=== PATIENT | female | born 2000 | race Two or more races ===

== ENCOUNTER 2023-08-27 23:38 | Emergency (ER) | payer MEDICAID ==
[~2023-08-27] VITALS: Ht 160 cm; Wt 115.8 kg
[2023-08-28 00:33] LABS: Urine Bacteria None Seen /hpf (None Seen)
[2023-08-28 00:44] LABS: Urine Blood Negative /uL (Negative); Urine Clarity Clear (Clear); Urine Color Light-Yellow (Yellow); Urine Mucus FEW (None Seen); Urine Protein, UAD Negative (Negative); Urine Specific Gravity 1.028 (1.001-1.035); Urine Urobilinogen Normal (Negative); Urine WBC 1 /hpf (0 - 5); Urine pH 5.5 (5.0-9.0)
[2023-08-28] MEDS: SODIUM CHLORIDE 0.9% 1,000 ML IV ONE (01:01)
[2023-08-28 01:08] VITALS: BP 122/82; PULSE 86; RESP 18; O2SAT 98
[2023-08-28] MEDS: MORPHINE SULFATE 4 MG/ML SYR/VIAL IV ONE (01:14)
[2023-08-28] MEDS: PANTOPRAZOLE 40 MG/10 ML VIAL INJ IV ONE (01:14)
[2023-08-28] MEDS: ONDANSETRON HCL 4 MG/2 ML VIAL IV ONE (01:15)
[2023-08-28 01:16] LABS: Basophils # (auto) 0.1 10 ^3/uL (0-0.2); Basophils % (auto) 0.5 % (0.0-2.0); Eosinophils # (auto) 0.8 10 ^3/uL (0-0.8); Eosinophils % (auto) 5.4 % (0.0-7.0); Hematocrit 45.1 % (36.0-46.0); Hemoglobin 15.1 g/dL (12.2-16.2); Lymphocytes % (auto) 28.5 % (10.0-50.0); Mean Corpuscular Hemoglobin 29.2 pg (28.0-32.0); Mean Corpuscular Hgb Conc. 33.4 g/dL (32.0-36.0); Mean Corpuscular Volume 87.4 fL (80.0-100.0); Monocytes # (auto) 0.8 10 ^3/uL (0-1.3); Monocytes % (auto) 5.3 % (0.0-12.0); Neutrophils # (auto) 8.5 10 ^3/uL (1.6-8.6); Neutrophils % (auto) 60.3 % (37.0-80.0); Red Blood Cells 5.16 10^6/uL (4.0-5.20); Red Cell Distribution Width 13.5 % (11.8-14.3); White Blood Cell 14.1 10^3/uL (4.4-10.8)
[2023-08-28 01:29] LABS: Alanine Aminotransferase 45 U/L (7-40); Albumin 4.5 g/dL (3.2-4.8); Alkaline Phosphatase 95 U/L (46-116); Anion Gap 9 (5-15); Aspartate Aminotransferase 20 U/L (13-40); BUN/Creatinine Ratio 7.4 (10.0-20.0); Blood Urea Nitrogen 6 mg/dL (9-23); Carbon Dioxide 21 mmol/L (20-30); Chloride 109 mmol/L (98-107); Glucose 96 mg/dL (74-106); Lipase 42 U/L (12-53); Potassium 3.6 mmol/L (3.5-5.1); Sodium 139 mmol/L (136-145)
[2023-08-28 01:30] LABS: Total Protein 7.9 g/dL (5.7-8.2)
[2023-08-28] MEDS ORDERED: ZOFR4T PO (03:14)
[2023-08-28] MEDS ORDERED: CIPR-173 PO (03:14)
[2023-08-28] MEDS ORDERED: METR-344 PO (03:14)
[2023-08-28] MEDS ORDERED: ACET-1304 PO (03:14)
[2023-08-28] MEDS ORDERED: PANT40TA2 PO (03:14)
== END 2023-08-28 03:32 | disposition home or self-care (01) ==
LOC: ER 23:38
DX: K57.90 Diverticulosis of intestine, part unspecified, without perforation or abscess without bleeding (principal); R11.2 Nausea with vomiting, unspecified; R19.7 Diarrhea, unspecified; F32.A Depression, unspecified; F41.9 Anxiety disorder, unspecified; E66.01 Morbid (severe) obesity due to excess calories; Z68.42 Body mass index [BMI] 45.0-49.9, adult; Z88.0 Allergy status to penicillin
CPT/HCPCS: 36415; 74176; 80053; 81001; 81025; 83690; 85025; 96361; 96374; 96375; 99285; C9113; J2270; J2405; J7030

== ENCOUNTER 2024-06-06 21:09 | Emergency (ER) | payer MEDICAID ==
[~2024-06-06] VITALS: Ht 160 cm; Wt 117.0 kg
[~2024-06-06 21:09] MED LIST: ACET-1304 PO; CIPR-173 PO; METR-344 PO; PANT40TA2 PO; ZOFR4T PO
[2024-06-06 23:54] VITALS: BP 120/76; PULSE 98; RESP 17; TEMP 97.4; O2SAT 97
--- NOTE | 2024-06-07 00:24 | DVH ---
INDICATION: FALL/LOW BACK PAIN COMPARISON: None TECHNIQUE: 4 views of the lumbar spine were obtained. FINDINGS: Mild grade 1 anterolisthesis of L5 on S1 measures 0.3 cm. The lumbar vertebral alignment is otherwise normal. No definite evidence of pars defect. The intervertebral disc spaces are well-maintained. No significant facet arthropathy is noted. No acute fracture, vertebral compression deformity or aggressive osseous lesions. The paravertebral soft tissues are grossly unremarkable. IMPRESSION: 1. No acute fracture. 2. Mild grade 1 anterolisthesis of L5 on S1.
--- NOTE | 2024-06-07 01:58 | ED.PDOC ---
Back pain HPI HPI Comments PRESENTS TO ED FOR FALL INJURY. PATIENT REPORTS THAT SHE SLIPPED ON A PLASTIC BAG AND FELL ON A TILED FLOOR. DENIES LOSS OF CONCIOUSNESS. REPORTS THAT SHE DEVELOPED FEVER AND CHILLS WHEN SHE GOT HOME AND TOOK IBUPROFEN 400MG AT HOME. AFEBRILE. VS WNL. REPORTS LOW BACK PAIN. DENIES NUMBNESS, WEAKNESS SADDLE ANESTHESIA, AND LOSS OF BOWEL OR BLADDER CONTROL Chief Complaint: Fall Injury Time Seen by MD: 21:19 Reviewed Notes: Nurses Notes, Medications, Allergies Allergies: Coded Allergies: Penicillins (Verified Allergy, Unknown, 08/28/23) Home Meds Active Scripts Tizanidine Hydrochloride (Tizanidine Hcl) 4 Mg Tab, 4 MG PO HS PRN for 5 Days, #5 TAB Prov:KAROLYN PRIETOP 06/07/24 Nitrofurantoin Monohydrate Mac (Macrobid) 100 Mg Cap, 100 MG PO BID for 5 Days, #10 CAP Prov:KAROLYN PRIETO 06/07/24 Pantoprazole Sodium Sesquihydr (Protonix) 40 Mg Tab, 40 MG PO DAILY, #30 TAB Prov:JUAN HERNANDEZ MD 08/28/23 Ondansetron Odt 4MG Tab (ZOFRAN PO) 4 Mg Tb, 4 MG PO TID PRN, #15 TAB ODT TAB-DISSOLVE IN MOUTH, THEN SWALLOW Prov:JUAN HERNANDEZ MD 08/28/23 Acetaminophen (Tylenol Extra Strength) 500 Mg Tab, 1000 MG PO Q6HP PRN, #30 TAB Prov:JUAN HERNANDEZ MD 08/28/23 Metronidazole (Flagyl) 500 Mg Tab, 1 TAB PO TID for 7 Days, #21 TAB Prov:UJAN HERNANDEZ MD 08/28/23 Ciprofloxacin Hcl (Cipro) 500 Mg Tab, 1 TAB PO BID for 7 Days, #14 TAB Prov:JUAN HERNANDEZ MD 08/28/23 Information Source: Patient Mode of Arrival: Ambulatory Past Medical History PAST MEDICAL HISTORY: Denies Surgical History: Denies all surgeries 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 Family History Family History: Reviewed,noncontributory to illness Social History Smoker: Non-Smoker Alcohol: Denies ETOH Use Drugs: Denies Drug Use Lives In: Home Constitutional: denies: chills, diaphoresis, fatigue, fever, malaise, sweats, weakness, others EENTM: denies: blurred vision, double vision, ear bleeding, ear discharge, ear drainage, ear pain, ear ringing, eye pain, eye redness, hearing loss, mouth pain, mouth swelling, nasal discharge, nose bleeding, nose congestion, nose pain, photophobia, tearing, throat pain, throat swelling, voice changes, others Respiratory: denies: cough, hemoptysis, orthopnea, SOB at rest, shortness of breath, SOB with excertion, stridor, wheezing, others Cardiovascular: denies: chest pain, dizzy spells, diaphoresis, Dyspnea on exertion, edema, irregular heart beat, left arm pain, lightheadedness, palpitations, PND, syncope, others Gastrointestinal: denies: abdomen distended, abdominal pain, blood streaked bowels, constipated, diarrhea, dysphagia, difficulty swallowing, hematemesis, melena, nausea, poor appetite, poor fluid intake, rectal bleeding, rectal pain, vomiting, others Genitourinary: reports: dysuria; denies: abnormal vagina bleeding, burning, dyspareunia, flank pain, frequency, hematuria, incontinence, pain, , vagina discharge, urgency, others Neurological: denies: dizziness, fainting, headache, left sided numbness, left sided weakness, numbness, paresthesia, pre-existing deficit, right sided numb ness, right sided weakness, seizure, speech problems, tingling, tremors, weakness, others Musculoskeletal: reports: back pain; denies: gout, joint pain, joint swelling, muscle pain, muscle stiffness, neck pain, others Integumetry: denies: bruises, change in color, change in hair/nails, dryness, laceration, lesions, lumps, rash, wounds, others Allergic/Immunocompromised: denies: Difficulty Healing, Frequent Infections, Hives, Itching, others Hematologic/Lymphatic: denies: anemia, blood clots, easy bleeding, easy bruising, swollen glands, others Endocrine: denies: excessive hunger, excessive sweating, excessive thirst, excessive urination, flushing, intolerance to cold, intolerance to heat, unexplained weight gain, unexplained weight loss, others Psychiatric: denies: anxiety, bipolar disorder, depression, hopeless, panic disorder, schizophrenia, sleepless, suicidal, others Physical Exam General Appearance: No Apparent Distress, Normal HEENT: Normal ENT Inspection, Pharynx Normal, TMs Normal Neck: Full Range of Motion, Non-Tender, Normal, Normal Inspection Respiratory: Chest Non-Tender, Lungs Clear, No Accessory Muscle Use, No Respiratory Distress, Normal Breath Sounds Cardiovascular: No Edema, No JVD, No Murmur, No Gallop, Normal Peripheral Pu lses, Regular Rate/Rhythm Breast Exam: Deferred Gastrointestinal: No Organomegaly, Non Tender, No Pulsatile Mass, Normal Bowel Sounds, Soft Genitalia: Deferred Pelvic: Deferred Rectal: Deferred Extremities: No calf tenderness, Normal capillary refill, Normal inspection, Normal range of motion, Non-tender, No pedal edema Musculoskeletal : Apperance: Normal Neurologic: Alert, clothes marker II-XII nml as Tested, No Motor Deficits, Normal Affect, Normal Mood, No Sensory Deficits Cerebellar Function: Normal Reflexes: Normal Skin: Dry, Normal Color, Warm Lymphatic: No Adenopathy Was a procedure done? Was a procedure done?: No Back Pain Differential Dx Differential Diagnosis: Fracture, Musculoskeletal Pain, Urinary Obstruction, Urolithiasis X-Ray, Labs, Meds, VS Vital Signs Date Time Temp Pulse Resp B/P (MAP) Pulse Ox O2 Delivery O2 Flow Rate FiO2 06/06/24 23:54 98 17 97 Room Air 06/06/24 23:54 97.4 98 17 120/76 (91) 97 97.4 06/06/24 21:18 97.4 98 17 120/76 (91) 97 97.4 X-Ray, Labs, Meds, VS Comment LUMBAR SPINE SHOWS NO ACUTE FRACTURES, OSSEOUS LESIONS, OR SUBLUXATIONS. PATIENT UNABLE TO OBTAIN A URINE, SHE DOES REPORT DYSURIA LOW BACK PAIN WE WILL TREAT EMPIRICALLY. PATIENT GIVEN TORADOL 60 MG IM SHE REPORTS IMPROVEMENT IN PAIN AND FUNCTION REQUESTING DISCHARGE AT THIS TIME. SCRIPT MUSCLE RELAXER AND MACROBID. ADVISED TO REST INCREASE P.O. FLUIDS WITH ELECTROLYTES. FOLLOW UP WITH YOUR PCP IN 1-2 DAYS. TAKE MEDICATIONS PRESCRIBED SIDE EFFECTS DISCUSSED. ER RETURN PRECAUTIONS GIVEN PATIENT INDICATES UNDERSTANDING AND AGREES WITH DISCHARGE PLAN OF CARE. Time of 1ST Reevaluation: 01:52 Reevaluation 1ST: Improved Patient Education/Counseling: Diagnosis, Treatment, Prognosis, Need For Follow Up Family Education/Counseling: Diagnosis, Treatment, Prognosis, Need For Follow Up Departure 1 Departure Time of Disposition: 01:57 Impression: Primary Impression: Lumbar back sprain Qualified Codes: S33.5XXA - Sprain of ligaments of lumbar spine, initial encounter Additional Impression: UTI (urinary tract infection) Qualified Codes: N30.00 - Acute cystitis without hematuria Disposition: HOME / SELF CARE / HOMELESS Condition: Stable e-Prescriptions Tizanidine Hydrochloride (Tizanidine Hcl) 4 Mg Tab 4 MG PO HS PRN for 5 Days, #5 TAB Prov: KAROLYN PRIETO 06/07/24 Nitrofurantoin Monohydrate Mac (Macrobid) 100 Mg Cap 100 MG PO BID for 5 Days, #10 CAP Prov: KAROLYN PRIEOT 06/07/24 Discharged With: Spouse Critical Care Note Critical Care Time?: No Stability Stability form required: KAROLYN Moise Jun 07, 2024 01:58
[2024-06-07] MEDS: KETOROLAC TROMETH 60MG/2ML VIAL IM ONE (02:04)
[2024-06-07] MEDS ORDERED: NITR-87 PO (02:05)
[2024-06-07] MEDS ORDERED: TIZA-142 PO (02:06)
== END 2024-06-07 02:09 | disposition home or self-care (01) ==
LOC: ER 21:09
DX: S33.5XXA Sprain of ligaments of lumbar spine, initial encounter (principal); N39.0 Urinary tract infection, site not specified; Z88.0 Allergy status to penicillin; Z79.899 Other long term (current) drug therapy; W01.0XXA Fall on same level from slipping, tripping and stumbling without subsequent striking against object, initial encounter; Y93.89 Activity, other specified; Y92.89 Other specified places as the place of occurrence of the external cause; Y99.8 Other external cause status
CPT/HCPCS: 72100; 96372; 99283; J1885